=== PATIENT | male | born 1960 | race Caucasian/White ===

== ENCOUNTER → 2018-06-25 10:11 | Outpatient (CLI) | payer BC, SELFPAY ==
--- NOTE | 2018-06-25 10:13 | NM_ITS ---
History and Indications: Hypertension, palpitation, tobacco use. Procedure: Patient received a 0.4 mg of Lexiscan, resting heart rate was 59 beats per resting blood pressure 128/84, with Lexiscan maximum heart rate achieved was 93 bpm which is less than 85% of the maximum predicted heart rate and a blood pressure was 142/81. With Lexiscan patient denied complained of chest pain or shortness of breath. Electrocardiogram: Resting electrocardiogram shows atrial fibrillation, nonspecific ST-T changes, with Lexiscan there is less than 1.[address] segment depression noted from the baseline EKG. The EKG portion of the Lexiscan is nondiagnostic. Cardiac stress and resting SPECT images: Cardiac stress and rest SPECT images were obtained using technetium 99 Myoview 30.3 mCi at stress and 10.1 mCi at rest. Gated SPECT further analysis of segmental wall motion and calculation of the ejection fraction also done. Cardiac stress and the suspect images show uniform myocardial activity, without any segmental perfusion abnormality, either derived ejection fraction is over 65% with no obvious regional wall motion abnormality, right ventricle is normal size and contractility. Conclusion: 1. The EKG portion of the Lexiscan Myoview is nondiagnostic. 2. No obvious scintigraphic evidence of reversible ischemia seen, computer derived ejection fraction is over 65% with no obvious regional wall motion abnormality, right ventricle is normal size and contractility. 3. Normal Lexiscan Myoview study.
--- NOTE | 2018-06-25 11:02 | CA_ITS ---
PROCEDURE: 2-D M-mode and color Doppler study INDICATIONS FOR THE TEST: Chest pain COPD Heart Murmur Tobacco SmokingX Palpitations Fatigue Syncope Edema HypertensionXDiabetes Mellitus Rheumatic Fever SOB DOEXObesityXHyperlipidemia Family History HD Additional History NEW ON SET AF PATIENT INFORMATION HEIGHT: 74 WEIGHT:285 GENDER: Male B/P:170/100 2-D/M-MODE INTERPRETATION: 2-D MEASUREMENTS OBSERVED VALUES IN CMS Right Ventricular Dimension (RVDd) .5 Interventricular Septum (Thickness)(IVsd) 1.8 Left Ventricular Internal Dimensions(LVIDd) 4.6 Left Ventricular Posterior Wall (Thickness)(LVPWd) 1.6 Aortic Root 3.8 Aortic Cusp Separation 1.8 Left Atrial Dimensions (LAD) 3.7 2D 1. Left atrium is mildly enlarged, left ventricle is normal size, mild concentric left ventricular hypertrophy, visually estimated ejection fraction 55% with no obvious regional wall motion abnormality, endocardial surfaces are poorly visualized. 2. The right atrium and right ventricle are normal size and contractility. 3. The aortic valve is thickened and calcified leaflet, display mobility. 4. The mitral and tricuspid valve are structurally normal. 5. The pulmonic valve is poorly visualized. 6. No significant pericardial effusion noted. DOPPLER INTERROGATION: Doppler interrogation of the aortic, mitral and tricuspid valvular presence of mild mitral and tricuspid regurgitation, tricuspid and jet velocity insufficient for calculation of the right ventricular systolic pressure, diastolic parameters are inconclusive. CONCLUSION: 1. Technically difficult study because of the patient's factor and poor acoustic windows 2. Mildly enlarged left atrium, normal left ventricular size, mild concentric left ventricular hypertrophy, visually estimated ejection fraction 55% with no obvious regional wall motion abnormality, endocardial surface of poorly visualized. 2. Mild mitral and tricuspid regurgitation 3. No significant pericardial effusion noted.
--- NOTE | 2018-06-25 15:07 | HMH.ITSHM ---
xarelto cartia ramipril metoprolol
--- NOTE | 2018-06-25 15:14 | US_ITS ---
US kidney retroperitoneal comp HISTORY: ITS.REASON: HTN, SOB ORDERING PHYSICIAN: Emiliano Garcia MD PATIENT AGE: 58 years Comparison: None FINDINGS: RIGHT KIDNEY:Unremarkable. Normal size and echogenicity. No hydronephrosis The right kidney measures 14 x 6 x 8 cm. There is a 17 mm exophytic cyst projecting off of the lateral aspect of the right kidney and there is a 2.2 cm cyst along the lower pole the right kidney. LEFT KIDNEY:Unremarkable. No hydronephrosis. Normal size and echogenicity. Left kidney measures 13 x 6 x 6 cm OTHER FINDINGS: No other pertinent findings IMPRESSION: 1. Right renal cyst. 2. Otherwise negative bilateral renal ultrasound
== END ==
PROVIDERS: PCP General Practice; Visit Provider Internal Medicine
DX: R06.00 Dyspnea, unspecified (principal); I48.91 Unspecified atrial fibrillation; I10 Essential (primary) hypertension; D75.1 Secondary polycythemia
CPT/HCPCS: 76770; 78452; 93017; 93306; 99195; A9502; J2785

== ENCOUNTER → 2018-07-16 09:10 | Outpatient (CLI) | payer BC, SELFPAY ==
--- NOTE | 2018-07-16 09:14 | CT_ITS ---
CT abdomen pelvis w con CLINICAL INDICATION: Right renal mass/cyst ITS.REASON: Renal Mass Protocol ORDERING PHYSICIAN: Emiliano Gracia MD PATIENT AGE: 58 years COMPARISON: 06/25/2018 TECHNIQUE: Axial images obtained with sagittal and coronal reformats. All CT scans at the facility use one or more dose reduction, viz: automated exposure control, ma/kV adjustment per patient size (including targeted exams where dose is matched to indication, i.e. head), or iterative reconstruction technique. PROCEDURE: Oral Contrast: None IV Contrast: 75 mL's of Isovue-370. FINDINGS: There are minimal atelectatic changes in the lung bases. Coronary artery calcifications are present. The liver, spleen, adrenal glands, pancreas, and gallbladder have an unremarkable appearance. No renal or ureteral calculi. A 2 cm hypoattenuating lesion is present in the posterior aspect of the right kidney measuring near water density consistent with a renal cyst. In addition, there is a 1.8 cm isoattenuating nodule projecting off the lateral aspect of the right kidney consistent with a right renal cyst. No suspicious renal masses are evident. Incidental note made of a small ventral abdominal wall hernia superior to the umbilicus. There is a small umbilical hernia as well. Both of these contain fat. Unremarkable appendix. No evidence of intestinal obstruction or free air. No evidence of diverticulitis. There are degenerative changes in the lumbar spine. IMPRESSION: 1. At least 2 right renal cysts. No suspicious renal lesions evident. 2. Small ventral and umbilical hernias containing fat
[2018-07-16 09:35] LABS: Blood Urea Nitrogen 16 mg/dL (7-18); Creatinine,Serum 1.26 mg/dL (0.70-1.30); Estimated Glomerular Filt Rate 58 ml/min (>60); GFR (African American) 71 ML/MIN (>60)
== END ==
PROVIDERS: PCP General Practice; Visit Provider Internal Medicine
DX: N28.1 Cyst of kidney, acquired (principal)
CPT/HCPCS: 36415; 74177; 82565; 84520; Q9967

== ENCOUNTER → 2019-01-09 10:27 | Outpatient (CLI) | payer BC, SELFPAY ==
--- NOTE | 2019-01-09 10:32 | XR_ITS ---
XR chest 2V HISTORY: Heart disease, atrial fibrillation ITS.REASON: / ORDERING PHYSICIAN: Kermit Baca MD PATIENT AGE: 58 years COMPARISON: None FINDINGS: Unremarkable cardiovascular structures. There is elevation of left hemidiaphragm with left basilar atelectasis. The remaining lungs are clear. No acute bony findings. There is an old fracture of the distal clavicle on the left IMPRESSION: Elevated left hemidiaphragm with mild left basilar atelectasis
== END ==
PROVIDERS: PCP General Practice; Visit Provider Internal Medicine Cardiovascular Disease
DX: I48.91 Unspecified atrial fibrillation (principal); I10 Essential (primary) hypertension; F17.200 Nicotine dependence, unspecified, uncomplicated
CPT/HCPCS: 71046